=== PATIENT | female | born 1950 | race Hispanic/Latino ===

== ENCOUNTER 2020-12-14 14:02 | Outpatient (RCR) | payer MEDICARE | END 2020-12-20 | LOC: WCC 14:02 | PROVIDERS: ATTEND Internal Medicine Infectious Disease | DX: I87.311 Chronic venous hypertension (idiopathic) with ulcer of right lower extremity (principal); I87.312 Chronic venous hypertension (idiopathic) with ulcer of left lower extremity; L97.821 Non-pressure chronic ulcer of other part of left lower leg limited to breakdown of skin; L97.811 Non-pressure chronic ulcer of other part of right lower leg limited to breakdown of skin; I87.2 Venous insufficiency (chronic) (peripheral); R60.0 Localized edema; I10 Essential (primary) hypertension; M13.80 Other specified arthritis, unspecified site; R26.81 Unsteadiness on feet ==

== ENCOUNTER → 2020-12-18 | Outpatient (CLI) | payer MEDICARE | LOC: RAD 09:09 | PROVIDERS: ATTEND Internal Medicine Infectious Disease | DX: I87.2 Venous insufficiency (chronic) (peripheral) (principal) | CPT/HCPCS: 93970 ==

== ENCOUNTER 2021-01-08 13:25 | Outpatient (RCR) | payer MEDICARE ==
[~2021-01-08 13:25] MED LIST: LIDOCAINE/PRILOCAINE 2.5-2.5% KIT ONE; MINERAL OIL/PETROLAT/GLYCERI 6OZ BTL ONE
== END 2021-01-17 ==
LOC: WCC 13:25
PROVIDERS: ATTEND Internal Medicine Infectious Disease
DX: I87.311 Chronic venous hypertension (idiopathic) with ulcer of right lower extremity (principal); L97.811 Non-pressure chronic ulcer of other part of right lower leg limited to breakdown of skin; L97.821 Non-pressure chronic ulcer of other part of left lower leg limited to breakdown of skin; I87.312 Chronic venous hypertension (idiopathic) with ulcer of left lower extremity; I87.2 Venous insufficiency (chronic) (peripheral); R60.0 Localized edema; I10 Essential (primary) hypertension; M13.80 Other specified arthritis, unspecified site; R26.81 Unsteadiness on feet

== ENCOUNTER → 2022-06-03 | Outpatient (CLI) | payer MEDICARE | LOC: MAMMO 12:43 | PROVIDERS: ATTEND Internal Medicine | DX: Z12.31 Encounter for screening mammogram for malignant neoplasm of breast (principal); Z13.820 Encounter for screening for osteoporosis; Z78.0 Asymptomatic menopausal state | CPT/HCPCS: 77067; 77080 ==

== ENCOUNTER 2024-12-05 07:20 | Emergency (ER) | payer MEDICARE ==
[~2024-12-05] VITALS: Ht 165.1 cm; Wt 113.4 kg
[~2024-12-05 07:20] MED LIST changes: +ASPIRIN81 MG PO; -LIDOCAINE/PRILOCAINE 2.5-2.5% KIT ONE; -MINERAL OIL/PETROLAT/GLYCERI 6OZ BTL ONE; +NAPROXEN250 MG PO
[2024-12-05] MEDS ORDERED: BUPIVACAINE HCL 0.25% 10ML MPF VIAL INJ ONE (08:00)
[2024-12-05] MEDS ORDERED: BENZOCAINE 20% SPR 60 ML CAN MT ONE (08:00)
[2024-12-05 09:04] LABS: BILIRUBIN,URINE NEGATIVE (NEGATIVE); CLARITY,URINE CLEAR (CLEAR); COLOR,URINE YELLOW (YELLOW); GLUCOSE, URINE NEGATIVE (NEGATIVE); KETONES,URINE NEGATIVE (NEGATIVE); LEUKOCYTE ESTERASE ,URINE TRACE (NEGATIVE); NITRITE,URINE NEGATIVE (NEGATIVE); PH,URINE 5.5 (5 - 7); PROTEIN,URINE DIPSTICK NEGATIVE (NEGATIVE); URINE UROBILINOGEN 0.2 mg/dL (0.2 - 1)
[2024-12-05 09:39] LABS: BACTERIA,URINE MODERATE /HPF; EPITHELIAL CELLS,URINE MODERATE /LPF; RBC,URINE 0-5 /HPF (0-5); WBC,URINE (MAN) 0-5 /HPF (0-5)
[2024-12-05] MEDS: DICYCLOMINE HCL 20 MG/2 ML VIAL IM ONE (10:23)
[2024-12-05] MEDS: KETOROLAC TROMETHAMINE 30 MG/ML VIAL IV STA (10:23)
[2024-12-05 10:41] VITALS: TEMP 97.7
[2024-12-05 10:42] LABS: BASOPHILS # (AUTO) 0.1 (0.0-0.1); BASOPHILS % 0.5 % (0.0-1.0); EOSINOPHILS # (AUTO) 0.2 (0.0-0.4); EOSINOPHILS % 1.5 % (0.0-6.0); HEMATOCRIT 41.6 % (34.2-44.1); HEMOGLOBIN 12.7 g/dL (12.0-16.0); LYMPHOCYTES # (AUTO) 2.2 (1.0-3.2); LYMPHOCYTES % 16.9 % (18.0-39.1); MEAN CORPUSCULAR HGB CONC 30.5 g/dL (31-35); MEAN CORPUSCULAR VOLUME 101.5 fL (81-99); MONOCYTES # (AUTO) 1.3 (0.2-0.8); MONOCYTES % 10.2 % (4.4-11.3); NEUTROPHILS % 70.6 % (38.7-80.0); PLATELET COUNT 203 x10e3/uL (140-360); RED CELL DISTRIBUTION WIDTH 13.2 % (11.7-14.4); WHITE BLOOD COUNT 12.69 x10e3/uL (4.8-10.8)
[2024-12-05 11:18] LABS: ALBUMIN 3.7 g/dL (3.5-5.0); ALBUMIN/GLOBULIN RATIO 0.9 (0.8-2.0); ANION GAP 15.6 mmol/L (8-16); BILIRUBIN,TOTAL 1.1 mg/dL (0.2-1.2); CALCIUM 9.9 mg/dL (8.4-10.2); CREATININE, SERUM 0.87 mg/dL (0.57-1.11); POTASSIUM 3.6 mmol/L (3.5-5.1); TOTAL PROTEIN 7.9 g/dL (6.5-8.1)
[2024-12-05] MEDS ORDERED: IOPAMIDOL 370 MG/ML 100 ML INFUS..BTL INJ ONE (11:34)
[2024-12-05] MEDS ORDERED: CIPRO500 MG PO (13:23)
[2024-12-05] MEDS ORDERED: METRONIDAZOLE500 MG PO (13:23)
[2024-12-05] MEDS ORDERED: DICYCLOMINE HCL20 MG PO (13:24)
[2024-12-05 13:40] VITALS: PULSE 75; RESP 18; O2SAT 98
== END 2024-12-05 13:45 | disposition home or self-care (01) ==
LOC: ER 07:27
DX: R30.0 Dysuria (principal); K57.32 Diverticulitis of large intestine without perforation or abscess without bleeding; R10.30 Lower abdominal pain, unspecified; K76.0 Fatty (change of) liver, not elsewhere classified
CPT/HCPCS: 36415; 74177; 80053; 81001; 85025; 87086; 99284; J0500; J1885; Q9967

== ENCOUNTER → 2025-05-22 | Outpatient (REF) | payer MEDICARE ==
[~2025-05-22] MED LIST changes: +CIPRO500 MG PO; +DICYCLOMINE HCL20 MG PO; +METRONIDAZOLE500 MG PO; +OMEPRAZOLE40 MG PO
== END ==
LOC: RAD 10:10
PROVIDERS: ATTEND Internal Medicine Critical Care Medicine
DX: R06.00 Dyspnea, unspecified (principal)
CPT/HCPCS: 71046